=== PATIENT | female | born 1970 | race American Indian/Alaskan Native ===

== ENCOUNTER 2019-05-03 15:20 | Outpatient (CLI) | payer MEDICAID ==
[2019-05-03 16:07] LABS: Hematocrit 38.6 % (30.3-42.9); Mean Corpuscular HGB Conc 34 % (30-34); Mean Corpuscular Volume 86 fl (79-97); Platelet Count 307 K/mm3 (140-440); Red Blood Count 4.49 M/mm3 (3.65-5.03); Red Cell Distribution Width 14.7 % (13.2-15.2)
--- NOTE | 2019-05-03 16:32 | XRay Report ---
CHEST 2 VIEWS INDICATION / CLINICAL INFORMATION: Hypertension. COMPARISON: None available. FINDINGS: SUPPORT DEVICES: None. HEART / MEDIASTINUM: No significant abnormality. LUNGS / PLEURA: No significant pulmonary or pleural abnormality. No pneumothorax. ADDITIONAL FINDINGS: No significant additional findings. IMPRESSION: 1. No acute findings. Signer Name: Ric Mooney MD Signed: 05/03/2019 3:28 PM Workstation Name: [id number]
[2019-05-03 17:29] LABS: Albumin 3.9 g/dL (3.9-5); Calcium 9.4 mg/dL (8.4-10.2)
[2019-05-03 18:35] LABS: Chol/HDL Ratio 3.9 %
== END 2019-05-03 15:21 | disposition home or self-care (01) ==
LOC: LAB 15:20
PROVIDERS: ATTEND Internal Medicine
DX: Z00.01 Encounter for general adult medical examination with abnormal findings (principal); I10 Essential (primary) hypertension; G47.30 Sleep apnea, unspecified; E87.8 Other disorders of electrolyte and fluid balance, not elsewhere classified; R73.9 Hyperglycemia, unspecified; R94.4 Abnormal results of kidney function studies; E78.1 Pure hyperglyceridemia
CPT/HCPCS: 36415; 36600; 71046; 80053; 80061; 82785; 82803; 84443; 85027

== ENCOUNTER → 2019-06-14 | Outpatient (CLI) | payer MEDICAID | END | disposition home or self-care (01) | LOC: SLR 11:00 | PROVIDERS: ATTEND Internal Medicine | DX: G47.33 Obstructive sleep apnea (adult) (pediatric) (principal); R40.0 Somnolence; R06.83 Snoring | CPT/HCPCS: G0399 ==